=== PATIENT | female | born 1925 | race Caucasian/White ===

== ENCOUNTER 2016-10-13 07:39 | Emergency (ER) | payer MEDICARE ==
[~2016-10-13] VITALS: Ht 154.9 cm; Wt 57.2 kg
[2016-10-13] MEDS ORDERED: FAMOTIDINE 20 MG TABLET ONE (08:28)
[2016-10-13] MEDS ORDERED: FAMOTIDINE 20 MG TABLET PO ONE (08:30)
[2016-10-13] MEDS ORDERED: PRED20TA PO (08:36)
[2016-10-13] MEDS ORDERED: LORA1TAB PO (08:36)
[2016-10-13] MEDS ORDERED: DICY10CA3 PO (08:36)
[2016-10-13] MEDS ORDERED: HYDR25TA11 PO (08:36)
[2016-10-13 09:01] VITALS: BP 140/60
== END 2016-10-13 09:21 | disposition home or self-care (01) ==
LOC: ED 09:15
DX: L27.0 Generalized skin eruption due to drugs and medicaments taken internally (principal)
CPT/HCPCS: 99284; J7512; Q0177